=== PATIENT | female | born 1990 | race African-American/Black ===

== ENCOUNTER 2017-07-14 15:51 | Emergency (ER) | payer SELFPAY ==
[~2017-07-14] VITALS: Ht 165.1 cm; Wt 67.2 kg
[~2017-07-14 15:51] MED LIST: ALBU0.0912 IH; FERR-252 PO
[2017-07-14 16:08] VITALS: BP 144/81
[2017-07-14] MEDS ORDERED: ONDANSETRON 4 MG ODT PO ONE (18:05)
[2017-07-14] MEDS ORDERED: IPRATROPIUM 0.02% 0.5 MG/2.5 ML NEBU INH ONE (18:05)
[2017-07-14] MEDS ORDERED: DEXAMETHASONE 10 MG/ML VIAL IM ONE (18:05)
[2017-07-14] MEDS ORDERED: ALBUTEROL 0.083% 2.5 MG/3 ML NEBU INH ONE (18:05)
[2017-07-14] MEDS ORDERED: ONDANSETRON 4 MG/2 ML VIAL IVP ONE (19:05)
[2017-07-14 19:55] LABS: BASOPHILS % (AUTO) 0.1 % (0.0-2.0); EOSINOPHILS % (AUTO) 0.3 % (0.0-4.0); HEMATOCRIT 36.3 % (36-48); HEMOGLOBIN 11.9 g/dL (12.0-16.0); LYMPHOCYTES # (AUTO) 0.7 K/uL (2.5-16.5); LYMPHOCYTES % (AUTO) 7.3 % (20.5-51.1); MEAN CORPUSCULAR HEMOGLOBIN 27 pg (27-31); MEAN CORPUSCULAR HGB CONC 33 g/dL (33-37); MEAN CORPUSCULAR VOLUME 83.1 fL (80-94); MONOCYTES # (AUTO) 0.4 K/uL (0.8-1.0); MONOCYTES % (AUTO) 4.7 % (1.7-9.3); NEUTROPHILS # (AUTO) 8.4 K/uL (1.8-7.7); NEUTROPHILS % (AUTO) 87.6 % (42.2-75.2); PLATELET COUNT (AUTO) 270 K/uL (140-450); RED BLOOD CELL COUNT(AUTO) 4.36 MIL/uL (4.20-5.40); RED CELL DISTRIBUTION WIDTH 12.9 % (11.6-13.7); WHITE BLOOD COUNT (AUTO) 9.6 K/uL (4.8-10.8)
[2017-07-14 19:57] LABS: APPEARANCE,URINE CLEAR (CLEAR); BILIRUBIN,URINE NEGATIVE (NEGATIVE); BLOOD, URINE NEGATIVE (NEGATIVE); COLOR,URINE YELLOW (YELLOW); LEUKOCYTE ESTERASE ,URINE NEGATIVE (NEGATIVE); NITRITE, URINE NEGATIVE (NEGATIVE); PH,URINE 7.5 (5.0-9.0); UGLUCOSE NEGATIVE (NEGATIVE)
[2017-07-14 20:14] LABS: ANION GAP 16.1 (8-16); CARBON DIOXIDE 22.9 mmol/L (21-32); CREATININE 0.8 mg/dL (0.6-1.3)
[2017-07-14 20:20] LABS: TOTAL BILIRUBIN 0.6 mg/dL (0.0-1.0)
[2017-07-14 20:34] VITALS: BP 138/73
== END 2017-07-14 20:35 | disposition home or self-care (01) ==
LOC: MED 15:51
DX: R06.02 Shortness of breath (principal); R05 Cough; J34.89 Other specified disorders of nose and nasal sinuses; J45.909 Unspecified asthma, uncomplicated; Z79.899 Other long term (current) drug therapy; Z88.0 Allergy status to penicillin
CPT/HCPCS: 36415; 71045; 80053; 81003; 84484; 85025; 87040; 94640; 96372; 96374; 99285; J1100; J2405; J7613; J7644; S0119

== ENCOUNTER 2022-08-11 20:59 | Emergency (ER) | payer MEDICAID ==
[~2022-08-11] VITALS: Ht 165.1 cm; Wt 81.6 kg
[2022-08-11 21:00] VITALS: BP 152/85; PULSE 96; RESP 16; TEMP 98.7; O2SAT 98
--- NOTE | 2022-08-11 21:00 | NUR ---
TO BED AMBULATORY
--- NOTE | 2022-08-11 21:10 | NUR ---
Patient resting in bed, A/Ox4, chest rise and fall symmetrical, no s/s of distress, on monitor.
[2022-08-11 22:00] LABS: APPEARANCE,URINE CLEAR (CLEAR); BILIRUBIN,URINE NEGATIVE (NEGATIVE); BLOOD, URINE NEGATIVE (NEGATIVE); COLOR,URINE YELLOW (YELLOW); LEUKOCYTE ESTERASE ,URINE NEGATIVE (NEGATIVE); NITRITE, URINE NEGATIVE (NEGATIVE); PH,URINE 7.5 (5.0-9.0); UGLUCOSE NEGATIVE (NEGATIVE)
[2022-08-11] MEDS ORDERED: ONDANSETRON 4 MG/2 ML VIAL IVP ONE (22:05)
[2022-08-11] MEDS ORDERED: KETOROLAC 30 MG/ML VIAL IVP ONE (22:05)
[2022-08-11 22:41] LABS: BASOPHILS % (AUTO) 0.1 % (0.0-2.0); EOSINOPHILS % (AUTO) 0.3 % (0.0-4.0); HEMOGLOBIN 12.8 g/dL (12.0-16.0); LYMPHOCYTES # (AUTO) 0.9 K/uL (2.5-16.5); LYMPHOCYTES % (AUTO) 9.9 % (20.5-51.1); MEAN CORPUSCULAR HEMOGLOBIN 28 pg (27-31); MEAN CORPUSCULAR HGB CONC 34 g/dL (33-37); MEAN CORPUSCULAR VOLUME 82.3 fL (80-94); MONOCYTES # (AUTO) 1.4 K/uL (0.8-1.0); MONOCYTES % (AUTO) 15.7 % (1.7-9.3); NEUTROPHILS # (AUTO) 6.5 K/uL (1.8-7.7); PLATELET COUNT (AUTO) 283 K/uL (140-450); RED BLOOD CELL COUNT(AUTO) 4.62 MIL/uL (4.20-5.40); RED CELL DISTRIBUTION WIDTH 12.9 % (11.6-13.7); WHITE BLOOD COUNT (AUTO) 8.8 K/uL (4.8-10.8)
[2022-08-11 22:55] LABS: ALBUMIN 4.1 g/dL (3.4-5.0); ANION GAP 14.9 (8-16); CARBON DIOXIDE 23.8 mmol/L (21-32); CREATININE 0.8 mg/dL (0.6-1.3); POTASSIUM 3.7 mmol/L (3.5-5.1); TOTAL BILIRUBIN 0.3 mg/dL (0.0-1.0)
[2022-08-12] MEDS ORDERED: FAMO-90 PO (00:14)
[2022-08-12] MEDS ORDERED: ALUM355S59 PO (00:14)
[2022-08-12] MEDS ORDERED: MIRABULK PO (00:14)
--- NOTE | 2022-08-12 00:15 | NUR ---
Patient resting in bed, A/Ox4, chest rise and fall symmetrical, no s/s of distress, on monitor.
[2022-08-12 00:40] VITALS: BP 121/79; PULSE 82; RESP 18; TEMP 98.5; O2SAT 99
== END 2022-08-12 00:40 | disposition home or self-care (01) ==
LOC: MED 20:59
DX: K29.70 Gastritis, unspecified, without bleeding (principal); K59.00 Constipation, unspecified; Z20.822 Contact with and (suspected) exposure to COVID-19; J45.909 Unspecified asthma, uncomplicated; Z79.899 Other long term (current) drug therapy; Z88.0 Allergy status to penicillin
CPT/HCPCS: 36415; 80053; 81003; 81025; 83690; 85025; 87426; 96374; 96375; 99285; J1885; J2405